=== PATIENT | male | born 1995 | race Caucasian/White ===

== ENCOUNTER 2021-08-08 11:57 | Emergency (ER) | payer OTHER ==
[~2021-08-08] VITALS: Ht 177.8 cm; Wt 88.5 kg
[2021-08-08 12:32] LABS: ABSOLUTE NEUTROPHILS 2.4 thou/uL (1.4-8.2); BASOPHILS 0.3 % (0.0-2.0); EOSINOPHILS 0.5 % (0.0-3.0); HEMATOCRIT 46.4 % (42.0-52.0); HEMOGLOBIN 15.9 gm/dL (14.0-18.0); LYMPHOCYTES 15.9 % (24.0-44.0); MCH 30.6 pg (26.0-34.0); MCHC 34.2 g/dL (28.0-37.0); MCV 89.5 fL (80.0-100.0); MONOCYTES 15.7 % (1.0-8.0); POLYS 67.6 % (36.0-66.0); RBC 5.19 mil/uL (4.50-6.00); RDW 13.4 % (10.5-14.5); WBC 3.5 thou/uL (4.0-11.0)
[2021-08-08 12:49] LABS: CREATININE 1.3 mg/dL (0.7-1.3); POTASSIUM 4.2 mmol/L (3.5-5.1)
[2021-08-08 13:02] LABS: ALBUMIN 3.8 g/dL (3.4-5.0); TOTAL BILIRUBIN 0.2 mg/dL (0.2-1.0); TOTAL PROTEIN 7.3 g/dL (6.4-8.2)
--- NOTE | 2021-08-08 13:02 | EKG ---
[address] [address] [place] [address] ELECTROCARDIOGRAM REPORT Name: KATRINBERTHA SILVIA Room #: REG [facility]#: [id number] Admission: 08/08/21 Attend Phys: Discharge: Date of : 89 Report #: [id number] [facility] ED Test Date: 2021-08-08 Test Time: 12:01:41 Pat Name: BERTHA WILKES Department: Room: Gender: Manager [employer]: : 1995 Requested By: Chad Henry Order Number: [id number] MD: Matt Pedroza Measurements Intervals [place] Rate: 73 P: 27 MI: 152 QRS: 60 QRSD: 94 T: 15 QT: 341 QTc: 376 Interpretive Statements Sinus rhythm Probable left atrial enlargement RSR' in V1 or V2, right VCD or RVH No previous ECG available for comparison Electronically Signed On 08-08-2021 13:02:08 CDT by Matt Pedroza [email or web address] <ELECTRONICALLY SIGNED> By: Matt Pedrzoa MD, [facility] 08/08/21 1302 1201 1201 Matt Pedroza MD, FACC /EPI
[2021-08-08 13:30] VITALS: BP 137/79
[2021-08-08] MEDS ORDERED: MOBIC7.5 MG PO (13:39)
[2021-08-08 13:40] LABS: PLATELET COUNT 119 thou/uL (150-400); PLATELET ESTIMATE NORMAL
== END 2021-08-08 13:30 | disposition home or self-care (01) ==
LOC: ER 11:57
PROVIDERS: Emergency Medicine
DX: U07.1 COVID-19 (principal); R07.89 Other chest pain; R05 Cough; J02.9 Acute pharyngitis, unspecified